=== PATIENT | female | born 1940 | race Caucasian/White ===

== ENCOUNTER → 2017-05-26 | Outpatient (CLI) | payer MEDICARE, OTHER ==
[~2017-05-26] MED LIST: DIABETA5 MG PO; FERROUS SU325 MG/TAB PO; FOLIC ACID 40400 MCG PO; HCTZ 25MG25 MG PO; KLOR-CON 1010 MEQ PO; LISINOPRIL10 MG PO; VITAMIN C500 MG PO
== END ==
LOC: MC.RAD 09:31
DX: R92.0 Mammographic microcalcification found on diagnostic imaging of breast (principal)